=== PATIENT | female | born 1970 | race Caucasian/White ===

== ENCOUNTER 2022-02-16 10:29 | Emergency (ER) | payer SELFPAY ==
[~2022-02-16] VITALS: Ht 165.1 cm; Wt 65.0 kg
[2022-02-16 10:46] VITALS: TEMP 98.4
[2022-02-16] MEDS ORDERED: NORCO 325 MG-51 TAB PO (12:25)
[2022-02-16 12:55] VITALS: BP 116/72; PULSE 72
== END 2022-02-16 12:55 | disposition home or self-care (01) ==
LOC: COL.ER 10:29
DX: S52.501A Unspecified fracture of the lower end of right radius, initial encounter for closed fracture (principal); S52.611A Displaced fracture of right ulna styloid process, initial encounter for closed fracture; W01.0XXA Fall on same level from slipping, tripping and stumbling without subsequent striking against object, initial encounter